=== PATIENT | male | born 1945 | race Two or more races ===

== ENCOUNTER 2020-02-23 14:01 | Inpatient (IN) | payer OTHER ==
[~2020-02-23] VITALS: Ht 175.3 cm; Wt 90.7 kg
[~2020-02-23 14:01] MED LIST: CAPOTEN25 MG; HYDROCHLOROTHIA25 MG
[2020-02-23] MEDS ORDERED: ZESTRIL40 M1 (14:29)
[2020-02-23] MEDS ORDERED: FORTAMET500 MG (14:29)
[2020-02-23] MEDS ORDERED: LASIX20 MG (14:30)
[2020-02-23] MEDS ORDERED: EZETIMIBE10 MG (14:30)
[2020-02-23] MEDS ORDERED: CARVEDILOL ER40 MG (14:31)
[2020-02-23] MEDS ORDERED: CARVEDILOL 25 MG (14:31)
[2020-03-02] MEDS ORDERED: CARVEDILOL25 M1 PO (14:39)
[2020-03-09] MEDS ORDERED: LISINOPRIL40 MG PO (14:20)
[2020-03-09] MEDS ORDERED: INTESTINEX680 M1 PO (14:21)
== END 2020-03-09 14:46 | disposition home or self-care (01) | DRG 623 ==
LOC: ER 14:01 → SEC-K 02-24 09:05 → MEDI 02-24 13:23 → MEDJ 02-24 13:23 → MEDI 03-09 14:46
PROVIDERS: ADMIT Internal Medicine; ATTEND Internal Medicine
PROC: B54DZZZ Ultrasonography of Bilateral Lower Extremity Veins (ICD-10-PCS; principal; 2020-02-24)
PROC: 0JBN0ZZ Excision of Right Lower Leg Subcutaneous Tissue and Fascia, Open Approach (ICD-10-PCS; 2020-03-01)
PROC: 0JBP0ZZ Excision of Left Lower Leg Subcutaneous Tissue and Fascia, Open Approach (ICD-10-PCS; 2020-03-01)
PROC: 0JBP0ZZ Excision of Left Lower Leg Subcutaneous Tissue and Fascia, Open Approach (ICD-10-PCS; 2020-03-08)
PROC: 0JBN0ZZ Excision of Right Lower Leg Subcutaneous Tissue and Fascia, Open Approach (ICD-10-PCS; 2020-03-08)
PROC: 0JBN3ZX Excision of Right Lower Leg Subcutaneous Tissue and Fascia, Percutaneous Approach, Diagnostic (ICD-10-PCS; 2020-03-08)
DX: E11.622 Type 2 diabetes mellitus with other skin ulcer (principal); L03.116 Cellulitis of left lower limb; L03.115 Cellulitis of right lower limb; L97.828 Non-pressure chronic ulcer of other part of left lower leg with other specified severity; L97.818 Non-pressure chronic ulcer of other part of right lower leg with other specified severity; E11.628 Type 2 diabetes mellitus with other skin complications; I11.9 Hypertensive heart disease without heart failure; I87.2 Venous insufficiency (chronic) (peripheral); B95.61 Methicillin susceptible Staphylococcus aureus infection as the cause of diseases classified elsewhere; L08.89 Other specified local infections of the skin and subcutaneous tissue

== ENCOUNTER 2020-04-24 05:42 | Emergency (ER) | payer OTHER ==
[~2020-04-24] VITALS: Ht 177.8 cm; Wt 121.6 kg
[~2020-04-24 05:42] MED LIST changes: +CARVEDILOL 25 MG; +CARVEDILOL ER40 MG; +CARVEDILOL25 M1 PO; +EZETIMIBE10 MG; +FORTAMET500 MG; +INTESTINEX680 M1 PO; +LASIX20 MG; +LISINOPRIL40 MG PO; +ZESTRIL40 M1
== END 2020-04-24 09:46 | disposition home or self-care (01) ==
LOC: ER 05:42 → CPU-OBS 05:45 → ER 09:46
DX: I11.0 Hypertensive heart disease with heart failure (principal); I50.9 Heart failure, unspecified; R60.0 Localized edema; N50.89 Other specified disorders of the male genital organs; R06.02 Shortness of breath

== ENCOUNTER → 2020-05-04 | Emergency (ER) | payer OTHER ==
[~2020-05-04] VITALS: Ht 177.8 cm; Wt 123.8 kg
== END | disposition home or self-care (01) ==
LOC: ER 06:49
DX: Z46.6 Encounter for fitting and adjustment of urinary device (principal); N39.0 Urinary tract infection, site not specified; B96.89 Other specified bacterial agents as the cause of diseases classified elsewhere; B96.29 Other Escherichia coli [E. coli] as the cause of diseases classified elsewhere